=== PATIENT | female | born 2005 | race Caucasian/White ===

== ENCOUNTER 2024-06-18 10:52 | Emergency (ER) | payer OTHER ==
[~2024-06-18] VITALS: Ht 160 cm; Wt 97.5 kg
[2024-06-18 12:22] LABS: CORONAVIRUS COVID-19 AG Negative (NEGATIVE); INFLUENZA A AG Negative (NEGATIVE); INFLUENZA B AG Negative (NEGATIVE)
== END 2024-06-18 13:02 | disposition home or self-care (01) ==
LOC: ER 10:52
PROVIDERS: Student in an Organized Health Care Education/Training Program
DX: A08.4 Viral intestinal infection, unspecified (principal); J06.9 Acute upper respiratory infection, unspecified; Z88.8 Allergy status to other drugs, medicaments and biological substances
CPT/HCPCS: 71046; 87428-QW; 99284-25